=== PATIENT | female | born 1965 | race Caucasian/White ===

== ENCOUNTER 2020-10-02 01:23 | Observation (INO) ==
[2020-10-02] MEDS ORDERED: Ondansetron 4 MG/2 ML VIAL IVP PRN (01:45)
[2020-10-02] MEDS ORDERED: Naloxone 0.4 MG/ML INJ IVP PRN (01:45)
[2020-10-02] MEDS: Acetaminophen 325 MG TABLET PO PRN (04:05)
[2020-10-02] MEDS ORDERED: Dextrose Gel 15 GM/37.5 ML TUBE PO PRN ×2 (04:41)
[2020-10-02] MEDS ORDERED: D5% in Water 1,000 ML IVC PRN (04:41)
[2020-10-02] MEDS ORDERED: *HR* Dextrose 50 % in Water (Vial) 50 ML VIAL IVP PRN (04:41)
[2020-10-02] MEDS ORDERED: hydrOXYzine pamoate 25 MG CAPSULE PO PRN (07:56)
[2020-10-02] MEDS: Insulin LISPRO 300 UNITS/3 ML VIAL SQ SCH ×3 (08:20→17:23)
[2020-10-02 09:25] LABS: INR 1.1; Prothrombin Time 12.7 Seconds (9.4-12.1)
[2020-10-02 09:27] LABS: Basophils # 0.1 K/mcL (0.0-0.2); Basophils % 0.6 %; Eosinophils # 0.2 K/mcL (0.0-0.6); Eosinophils % 2.7 %; Hematocrit 39.1 % (35.3-44.9); Hemoglobin 11.9 g/dL (11.5-15.4); Immature Granulocytes % 0.4 % (0-4); Lymphocytes % 23.5 %; Mean Corpuscular HGB Conc 30.4 g/dL (31.6-35.5); Mean Corpuscular Hemoglobin 23.6 pg (28.0-33.3); Mean Corpuscular Volume 77.6 fL (83.0-100.0); Mean Platelet Volume 9.7 fL (9.4-12.4); Monocytes # 0.7 K/mcL (0.0-1.3); Monocytes % 8.4 %; Neutrophils # 5.5 K/mcL (1.6-8.9); Platelet Count 360 K/mcL (140-400); Red Blood Count 5.04 M/mcL (3.82-4.97); Red Cell Distribution Width 14.7 % (11.5-14.5); Segmented Neutrophils % 64.4 %; White Blood Count 8.5 K/mcL (4.3-11.1)
[2020-10-02 09:57] LABS: Alanine Aminotransferase 8 Units/L (7-52); Albumin 4.2 g/dL (3.5-5.7); Albumin/Globulin Ratio 1.4 (1.1-2.2); Alkaline Phosphatase 87 Units/L (34-104); Aspartate Amino Transferase 11 Units/L (13-39); BUN/Creatinine Ratio 38 (6-26); Blood Urea Nitrogen 21 mg/dL (6-20); Calcium 9.9 mg/dL (8.6-10.3); Carbon Dioxide 22 mEq/L (23-29); Chloride 102 mEq/L (98-107); Globulin 3.1 g/dL (2.4-3.5); Glucose 157 mg/dL (70-105); Magnesium 1.5 mg/dL (1.6-2.6); Osmolality,Calculated 290 (280-300); Potassium 4.2 mEq/L (3.5-5.1); Sodium 137 mEq/L (136-145); Total Protein 7.3 g/dL (6.4-8.9); Troponin I 0.04 ng/mL (< 0.04); eGFR For African Americans > 60 (> 60); eGFR For Non-African Americans > 60 (> 60)
[2020-10-02] MEDS: Aspirin Enteric Coated 81 MG Tablet PO SCH (10:19)
[2020-10-02] MEDS: Sucralfate 1 GM TABLET PO SCH ×3 (10:19→20:51)
[2020-10-02] MEDS: *HR* Heparin 5,000 UNIT/ML VIAL SQ SCH ×2 (10:19→17:23)
[2020-10-02] MEDS: Isosorbide MONOnitrate (24 HR) 60 MG TAB.ER.24H PO SCH (10:23)
[2020-10-02] MEDS ORDERED: Perflutren Lipid Microsphere 1.3 ML in 0.9 % Sodium Chloride 8.7 ML IVP PRN (10:36)
[2020-10-02] MEDS ORDERED: Ibuprofen 400 MG TABLET PO PRN (12:26)
[2020-10-02 18:02] LABS: Total Protein,Pleural Fluid 5.6 g/dL
[2020-10-02 18:06] LABS: RBC,Pleural Fluid 10000 RBC/mcL
[2020-10-02 18:08] LABS: Appearance of Pleural Fl Cloudy (Clear)
[2020-10-02 19:50] LABS: Basophils,Pleural Fluid 0 %; Eosinophils,Pleural Fluid 0 %
[2020-10-02] MEDS: Metoprolol XL (24 HR) Succ 25 MG TAB.ER.24H PO SCH (20:51)
[2020-10-03] MEDS: Insulin LISPRO 300 UNITS/3 ML VIAL SQ SCH ×3 (00:13→11:33)
[2020-10-03] MEDS: *HR* Heparin 5,000 UNIT/ML VIAL SQ SCH (05:30)
[2020-10-03] MEDS: Aspirin Enteric Coated 81 MG Tablet PO SCH (08:20)
[2020-10-03] MEDS: Sucralfate 1 GM TABLET PO SCH ×2 (08:20→11:33)
[2020-10-03] MEDS: Isosorbide MONOnitrate (24 HR) 60 MG TAB.ER.24H PO SCH (08:20)
[2020-10-03] MEDS: Metoprolol XL (24 HR) Succ 25 MG TAB.ER.24H PO SCH (08:21)
[2020-10-03] MEDS: Acetaminophen 325 MG TABLET PO PRN ×2 (08:26→16:20)
[2020-10-03 11:21] VITALS: BP 98/64
[2020-10-03] MEDS ORDERED: Insulin LISPRO 300 UNITS/3 ML VIAL SQ SCH (21:00)
[2020-10-05 19:45] LABS: Fluid Source for Albumin PLEURAL
== END 2020-10-03 16:27 | disposition home or self-care (01) ==
LOC: 2ANU → SUATTDRO 01:23
PROVIDERS: ADMIT Internal Medicine; ATTEND Internal Medicine

== ENCOUNTER 2021-02-02 05:29 | Inpatient (IN) ==
[2021-02-02] MEDS ORDERED: Melatonin 3 MG TABLET PO PRN (07:49)
[2021-02-02] MEDS ORDERED: Naloxone 0.4 MG/ML INJ IVP PRN (07:49)
[2021-02-02] MEDS ORDERED: Ondansetron 4 MG/2 ML VIAL IVP PRN (07:49)
[2021-02-02] MEDS ORDERED: Nitroglycerin 0.4 MG TAB.SUBL SL PRN (07:57)
[2021-02-02] MEDS ORDERED: Perflutren Lipid Microsphere 1.3 ML in 0.9 % Sodium Chloride 8.7 ML IVP PRN (08:37)
[2021-02-02] MEDS ORDERED: *HR* Heparin 5,000 UNIT/ML VIAL IVP ONE (08:40)
[2021-02-02] MEDS ORDERED: *HR* Heparin 5,000 UNIT/ML VIAL IVP PRN (08:40)
[2021-02-02] MEDS: Aspirin Enteric Coated 81 MG Tablet PO SCH (08:45)
[2021-02-02] MEDS: Loratadine 10 MG TABLET PO SCH (08:46)
[2021-02-02] MEDS ORDERED: Dextrose Gel 15 GM/37.5 ML TUBE PO PRN ×2 (08:56)
[2021-02-02] MEDS ORDERED: D5% in Water 1,000 ML IVC PRN (08:56)
[2021-02-02] MEDS ORDERED: *HR* Dextrose 50 % in Water (Vial) 50 ML VIAL IVP PRN (08:56)
[2021-02-02] MEDS: Insulin LISPRO 300 UNITS/3 ML VIAL SUBQ SCH ×4 (09:24→21:22)
[2021-02-02] MEDS: lisinopriL 5 MG TABLET PO SCH (09:27)
[2021-02-02] MEDS: Budesonide/Formoterol 160/4.5 1 PUFF INH IH SCH ×2 (09:45→20:54)
[2021-02-02] MEDS: Tiotropium 10 INH DOSE IH SCH (09:46)
[2021-02-02] MEDS: Heparin 25,000UNIT/250ML 1/2NS 25,000 UNIT/250 ML IV.SOLN IVC SCH (09:50)
[2021-02-02 10:13] LABS: Adenovirus Not Detected (Not Detect); Bordetella Pertussis Not Detected (Not Detect); Chlamydophila pneumoniae Not Detected (Not Detect); Coronavirus 229E Not Detected (Not Detect); Coronavirus HKU1 Not Detected (Not Detect); Coronavirus NL63 Not Detected (Not Detect); Coronavirus OC43 Not Detected (Not Detect); Human Metapneumovirus Not Detected (Not Detect); Human Rhinovirus/Enterovirus Not Detected (Not Detect); Influenza A Subtype 2009 H1 Not Detected (Not Detect); Influenza B Not Detected (Not Detect); Mycoplasma pneumoniae Not Detected (Not Detect); Parainfluenza Virus 1 Not Detected (Not Detect); Parainfluenza Virus 2 Not Detected (Not Detect); Parainfluenza Virus 3 Not Detected (Not Detect); Parainfluenza Virus 4 Not Detected (Not Detect); Respiratory Syncytial Virus Not Detected (Not Detect); SARS-CoV-2 Not Detected (Not Detect)
[2021-02-02] MEDS ORDERED: Isovue-370 500 ML BOTTLE IVP ONE (11:44)
[2021-02-02] MEDS: Acetaminophen 325 MG TABLET PO PRN (17:05)
[2021-02-02] MEDS: *HR* Heparin 5,000 UNIT/ML VIAL IVP PRN (19:27)
[2021-02-03 01:57] LABS: Hematocrit 37.2 % (35.3-44.9); Mean Corpuscular HGB Conc 29.6 g/dL (31.6-35.5); Mean Corpuscular Hemoglobin 21.5 pg (28.0-33.3); Mean Corpuscular Volume 72.7 fL (83.0-100.0); Mean Platelet Volume 9.2 fL (9.4-12.4); Platelet Count 287 K/mcL (140-400); Red Blood Count 5.12 M/mcL (3.82-4.97); Red Cell Distribution Width 18.7 % (11.5-14.5); White Blood Count 6.5 K/mcL (4.3-11.1)
[2021-02-03 02:07] LABS: Prothrombin Time 11.8 Seconds (9.4-12.1)
[2021-02-03 02:14] LABS: BUN/Creatinine Ratio 30 (6-26); Blood Urea Nitrogen 15 mg/dL (6-20); Calcium 9.3 mg/dL (8.6-10.3); Carbon Dioxide 23 mEq/L (23-29); Chloride 105 mEq/L (98-107); Glucose 176 mg/dL (70-105); Magnesium 1.9 mg/dL (1.6-2.6); Osmolality,Calculated 289 (280-300); Sodium 137 mEq/L (136-145); eGFR For African Americans > 60 (> 60); eGFR For Non-African Americans > 60 (> 60)
[2021-02-03 02:21] LABS: Troponin I 0.54 ng/mL (< 0.04)
[2021-02-03] MEDS: Budesonide/Formoterol 160/4.5 1 PUFF INH IH SCH ×2 (08:11→20:56)
[2021-02-03] MEDS: Tiotropium 10 INH DOSE IH SCH (08:12)
[2021-02-03] MEDS: Insulin LISPRO 300 UNITS/3 ML VIAL SUBQ SCH ×4 (08:34→22:14)
[2021-02-03] MEDS: lisinopriL 5 MG TABLET PO SCH (08:40)
[2021-02-03] MEDS: Aspirin Enteric Coated 81 MG Tablet PO SCH (08:41)
[2021-02-03] MEDS: Loratadine 10 MG TABLET PO SCH (08:42)
[2021-02-03] MEDS: Heparin 25,000UNIT/250ML 1/2NS 25,000 UNIT/250 ML IV.SOLN IVC SCH (10:04)
[2021-02-03] MEDS: Acetaminophen 325 MG TABLET PO PRN ×2 (10:04→20:00)
[2021-02-03] MEDS: hydrOXYzine pamoate 25 MG CAPSULE PO PRN (15:51)
[2021-02-04] MEDS: Acetaminophen 325 MG TABLET PO PRN ×3 (04:52→21:23)
[2021-02-04] MEDS: Heparin 25,000UNIT/250ML 1/2NS 25,000 UNIT/250 ML IV.SOLN IVC SCH (07:18)
[2021-02-04] MEDS: Tiotropium 10 INH DOSE IH SCH (07:55)
[2021-02-04] MEDS: Budesonide/Formoterol 160/4.5 1 PUFF INH IH SCH ×2 (07:55→20:36)
[2021-02-04] MEDS: Aspirin Enteric Coated 81 MG Tablet PO SCH (08:47)
[2021-02-04] MEDS: Loratadine 10 MG TABLET PO SCH (08:48)
[2021-02-04] MEDS: Insulin LISPRO 300 UNITS/3 ML VIAL SUBQ SCH ×4 (08:48→21:27)
[2021-02-04] MEDS: lisinopriL 5 MG TABLET PO SCH (09:00)
[2021-02-04] MEDS: hydrOXYzine pamoate 25 MG CAPSULE PO PRN (09:14)
[2021-02-04] MEDS: Sucralfate 1 GM TABLET PO SCH ×2 (17:54→21:23)
[2021-02-05] MEDS: hydrOXYzine pamoate 25 MG CAPSULE PO PRN (00:54)
[2021-02-05 01:45] LABS: Basophils % 0.5 %; Eosinophils # 0.2 K/mcL (0.0-0.6); Eosinophils % 2.9 %; Hematocrit 37.9 % (35.3-44.9); Hemoglobin 11.1 g/dL (11.5-15.4); Immature Granulocytes % 0.5 % (0-4); Lymphocytes # 2.5 K/mcL (0.6-4.6); Lymphocytes % 33.8 %; Mean Corpuscular HGB Conc 29.3 g/dL (31.6-35.5); Mean Corpuscular Hemoglobin 21.7 pg (28.0-33.3); Mean Platelet Volume 9.5 fL (9.4-12.4); Monocytes # 0.6 K/mcL (0.0-1.3); Monocytes % 8.7 %; Neutrophils # 3.9 K/mcL (1.6-8.9); Platelet Count 290 K/mcL (140-400); Red Blood Count 5.12 M/mcL (3.82-4.97); Red Cell Distribution Width 19.1 % (11.5-14.5); Segmented Neutrophils % 53.6 %; White Blood Count 7.4 K/mcL (4.3-11.1)
[2021-02-05 02:03] LABS: BUN/Creatinine Ratio 41 (6-26); Blood Urea Nitrogen 19 mg/dL (6-20); Carbon Dioxide 21 mEq/L (23-29); Chloride 104 mEq/L (98-107); Glucose 188 mg/dL (70-105); Potassium 3.9 mEq/L (3.5-5.1); Sodium 136 mEq/L (136-145); eGFR For African Americans > 60 (> 60); eGFR For Non-African Americans > 60 (> 60)
[2021-02-05 02:04] LABS: Calcium 9.9 mg/dL (8.6-10.3); Osmolality,Calculated 289 (280-300)
[2021-02-05] MEDS: Acetaminophen 325 MG TABLET PO PRN (04:37)
[2021-02-05] MEDS: Heparin 25,000UNIT/250ML 1/2NS 25,000 UNIT/250 ML IV.SOLN IVC SCH (04:41)
[2021-02-05] MEDS: Budesonide/Formoterol 160/4.5 1 PUFF INH IH SCH ×2 (07:30→19:59)
[2021-02-05] MEDS: Tiotropium 10 INH DOSE IH SCH (07:31)
[2021-02-05] MEDS: lisinopriL 5 MG TABLET PO SCH (08:55)
[2021-02-05] MEDS: Sucralfate 1 GM TABLET PO SCH ×4 (08:55→20:29)
[2021-02-05] MEDS: Loratadine 10 MG TABLET PO SCH (08:55)
[2021-02-05] MEDS: Aspirin Enteric Coated 81 MG Tablet PO SCH (08:56)
[2021-02-05] MEDS: Insulin LISPRO 300 UNITS/3 ML VIAL SUBQ SCH ×4 (08:56→20:28)
[2021-02-05] MEDS: *HR* OxyCODONE Immed Rel 5 MG TABLET PO PRN ×2 (08:59→15:24)
[2021-02-05] MEDS ORDERED: 0.9 % Sodium Chloride 2,000 ML ONE (09:22)
[2021-02-05] MEDS ORDERED: *HR* Midazolam HCl 2 MG/2 ML VIAL ONE (09:22)
[2021-02-05] MEDS ORDERED: *HR* Heparin 10,000 UNIT/10 ML VIAL ONE (09:22)
[2021-02-05] MEDS ORDERED: ISOVUE-370 200 ML INFUS..BTL ONE ×2 (09:22→10:11)
[2021-02-05] MEDS ORDERED: Heparin 1,000 UNITS/500 mL 500 ML ONE (09:22)
[2021-02-05] MEDS ORDERED: Nitroglycerin 1,000 MCG/5 ML VIAL IV ONE (09:22)
[2021-02-05] MEDS ORDERED: *HR* FentaNYL (PF) 100 MCG/2 ML VIAL ONE (09:22)
[2021-02-05] MEDS: *HR* Heparin 5,000 UNIT/ML VIAL IVP PRN (16:56)
[2021-02-06 01:08] LABS: Basophils % 0.5 %; Eosinophils # 0.2 K/mcL (0.0-0.6); Eosinophils % 2.8 %; Hematocrit 35.8 % (35.3-44.9); Hemoglobin 10.4 g/dL (11.5-15.4); Immature Granulocytes % 0.5 % (0-4); Lymphocytes # 2.4 K/mcL (0.6-4.6); Lymphocytes % 32.5 %; Mean Corpuscular HGB Conc 29.1 g/dL (31.6-35.5); Mean Corpuscular Volume 72.2 fL (83.0-100.0); Mean Platelet Volume 9.6 fL (9.4-12.4); Monocytes # 0.7 K/mcL (0.0-1.3); Monocytes % 8.7 %; Neutrophils # 4.1 K/mcL (1.6-8.9); Platelet Count 282 K/mcL (140-400); Red Blood Count 4.96 M/mcL (3.82-4.97); Red Cell Distribution Width 18.8 % (11.5-14.5); White Blood Count 7.5 K/mcL (4.3-11.1)
[2021-02-06 01:23] LABS: BUN/Creatinine Ratio 34 (6-26); Blood Urea Nitrogen 19 mg/dL (6-20); Calcium 9.4 mg/dL (8.6-10.3); Carbon Dioxide 22 mEq/L (23-29); Chloride 105 mEq/L (98-107); Glucose 193 mg/dL (70-105); Osmolality,Calculated 292 (280-300); Potassium 3.8 mEq/L (3.5-5.1); Sodium 137 mEq/L (136-145); eGFR For African Americans > 60 (> 60); eGFR For Non-African Americans > 60 (> 60)
[2021-02-06] MEDS: Heparin 25,000UNIT/250ML 1/2NS 25,000 UNIT/250 ML IV.SOLN IVC SCH (02:49)
[2021-02-06] MEDS: Budesonide/Formoterol 160/4.5 1 PUFF INH IH SCH ×2 (07:59→19:34)
[2021-02-06] MEDS: Tiotropium 10 INH DOSE IH SCH (08:00)
[2021-02-06] MEDS: Aspirin Enteric Coated 81 MG Tablet PO SCH (08:21)
[2021-02-06] MEDS: Insulin LISPRO 300 UNITS/3 ML VIAL SUBQ SCH ×4 (08:21→19:31)
[2021-02-06] MEDS: lisinopriL 5 MG TABLET PO SCH (08:22)
[2021-02-06] MEDS: Loratadine 10 MG TABLET PO SCH (08:22)
[2021-02-06] MEDS: Sucralfate 1 GM TABLET PO SCH ×4 (08:22→19:27)
[2021-02-06] MEDS: *HR* OxyCODONE Immed Rel 5 MG TABLET PO PRN (08:30)
[2021-02-06] MEDS: Isosorbide MONOnitrate (24 HR) 30 MG TAB.ER.24H PO SCH (17:12)
[2021-02-06] MEDS: *HR* Heparin 5,000 UNIT/ML VIAL SQ SCH (17:13)
[2021-02-06] MEDS: Acetaminophen 325 MG TABLET PO PRN (17:19)
[2021-02-06] MEDS: hydrOXYzine pamoate 25 MG CAPSULE PO PRN (19:27)
[2021-02-07] MEDS: *HR* Heparin 5,000 UNIT/ML VIAL SQ SCH (04:44)
[2021-02-07] MEDS: *HR* OxyCODONE Immed Rel 5 MG TABLET PO PRN (04:44)
[2021-02-07 05:45] LABS: Basophils % 0.3 %; Eosinophils # 0.2 K/mcL (0.0-0.6); Eosinophils % 2.5 %; Hematocrit 34.9 % (35.3-44.9); Hemoglobin 10.4 g/dL (11.5-15.4); Immature Granulocytes % 0.8 % (0-4); Lymphocytes # 2.1 K/mcL (0.6-4.6); Lymphocytes % 32.4 %; Mean Corpuscular HGB Conc 29.8 g/dL (31.6-35.5); Mean Corpuscular Hemoglobin 21.2 pg (28.0-33.3); Mean Corpuscular Volume 71.1 fL (83.0-100.0); Mean Platelet Volume 9.6 fL (9.4-12.4); Monocytes # 0.7 K/mcL (0.0-1.3); Monocytes % 10.2 %; Neutrophils # 3.5 K/mcL (1.6-8.9); Platelet Count 294 K/mcL (140-400); Red Blood Count 4.91 M/mcL (3.82-4.97); Red Cell Distribution Width 18.6 % (11.5-14.5); Segmented Neutrophils % 53.8 %; White Blood Count 6.5 K/mcL (4.3-11.1)
[2021-02-07 06:03] LABS: BUN/Creatinine Ratio 33 (6-26); Blood Urea Nitrogen 16 mg/dL (6-20); Calcium 9.9 mg/dL (8.6-10.3); Carbon Dioxide 24 mEq/L (23-29); Chloride 104 mEq/L (98-107); Glucose 197 mg/dL (70-105); Osmolality,Calculated 291 (280-300); Potassium 3.7 mEq/L (3.5-5.1); Sodium 137 mEq/L (136-145); eGFR For African Americans > 60 (> 60); eGFR For Non-African Americans > 60 (> 60)
[2021-02-07 06:05] LABS: Chol/HDL Ratio 4.2 (0-4.9)
[2021-02-07] MEDS: Tiotropium 10 INH DOSE IH SCH (07:50)
[2021-02-07] MEDS: Budesonide/Formoterol 160/4.5 1 PUFF INH IH SCH (07:50)
[2021-02-07] MEDS: Insulin LISPRO 300 UNITS/3 ML VIAL SUBQ SCH ×2 (08:09→11:07)
[2021-02-07] MEDS: Loratadine 10 MG TABLET PO SCH (08:09)
[2021-02-07] MEDS: Sucralfate 1 GM TABLET PO SCH ×2 (08:10→12:08)
[2021-02-07] MEDS: lisinopriL 5 MG TABLET PO SCH (08:10)
[2021-02-07] MEDS: Isosorbide MONOnitrate (24 HR) 30 MG TAB.ER.24H PO SCH (08:10)
[2021-02-07] MEDS: Acetaminophen 325 MG TABLET PO PRN ×2 (08:10→14:11)
[2021-02-07] MEDS ORDERED: Aspirin Enteric Coated 81 MG Tablet PO SCH (09:00)
[2021-02-07 11:01] VITALS: BP 120/60
== END 2021-02-07 15:15 | disposition home or self-care (01) | DRG 190 ==
LOC: 2ANU → SUATTDRO 07:32
PROVIDERS: ADMIT Internal Medicine; ATTEND General Practice

== ENCOUNTER 2021-04-02 09:17 | Observation (INO) ==
[2021-04-02] MEDS ORDERED: 0.9 % Sodium Chloride 1,000 ML ONE ×2 (09:36→14:16)
[2021-04-02] MEDS ORDERED: ISOVUE-370 200 ML INFUS..BTL ONE ×2 (09:36→14:16)
[2021-04-02] MEDS ORDERED: Heparin 1,000 UNITS/500 mL 500 ML ONE ×2 (09:36→14:16)
[2021-04-02] MEDS ORDERED: *HR* Heparin 10,000 UNIT/10 ML VIAL ONE ×2 (09:36→14:16)
[2021-04-02] MEDS ORDERED: Nitroglycerin 1,000 MCG/5 ML VIAL IV ONE ×2 (09:36→14:16)
[2021-04-02] MEDS ORDERED: Tirofiban 12.5 MG/250ML 12.5 MG/250 ML BAG ONE (09:40)
[2021-04-02] MEDS ORDERED: *HR* FentaNYL (PF) 100 MCG/2 ML VIAL ONE ×2 (10:09→14:49)
[2021-04-02] MEDS ORDERED: *HR* Midazolam HCl 2 MG/2 ML VIAL ONE ×2 (10:09→14:48)
[2021-04-03] MEDS ORDERED: Morphine Sulfate 2 MG/ML SYRINGE IVP PRN (00:13)
[2021-04-03] MEDS: Nitroglycerin 1 INCH/GM PACKET TP SCH ×2 (00:40→06:16)
[2021-04-03] MEDS ORDERED: Albuterol 2.5 MG/3 ML NEBULIZER IH PRN (00:46)
[2021-04-03] MEDS ORDERED: D5% in Water 1,000 ML IVC PRN (00:59)
[2021-04-03] MEDS ORDERED: *HR* Dextrose 50 % in Water (Vial) 50 ML VIAL IVP PRN (00:59)
[2021-04-03] MEDS ORDERED: Dextrose Gel 15 GM/37.5 ML TUBE PO PRN ×2 (00:59)
[2021-04-03 02:11] LABS: Basophils % 0.5 %; Eosinophils # 0.1 K/mcL (0.0-0.6); Eosinophils % 1.6 %; Hematocrit 35.1 % (35.3-44.9); Hemoglobin 10.5 g/dL (11.5-15.4); Immature Granulocytes % 0.5 % (0-4); Lymphocytes # 1.7 K/mcL (0.6-4.6); Lymphocytes % 26.1 %; Mean Corpuscular HGB Conc 29.9 g/dL (31.6-35.5); Mean Corpuscular Volume 70.1 fL (83.0-100.0); Mean Platelet Volume 9.3 fL (9.4-12.4); Monocytes # 0.5 K/mcL (0.0-1.3); Monocytes % 8.4 %; Platelet Count 317 K/mcL (140-400); Red Blood Count 5.01 M/mcL (3.82-4.97); Segmented Neutrophils % 62.9 %; White Blood Count 6.4 K/mcL (4.3-11.1)
[2021-04-03 02:28] LABS: Alanine Aminotransferase 12 Units/L (7-52); Albumin 3.9 g/dL (3.5-5.7); Albumin/Globulin Ratio 1.4 (1.1-2.2); Alkaline Phosphatase 76 Units/L (34-104); Aspartate Amino Transferase 11 Units/L (13-39); BUN/Creatinine Ratio 19 (6-26); Bilirubin,Total 0.8 mg/dL (0.3-1.0); Blood Urea Nitrogen 11 mg/dL (6-20); Calcium 9.6 mg/dL (8.6-10.3); Carbon Dioxide 31 mEq/L (23-29); Chloride 101 mEq/L (98-107); Globulin 2.7 g/dL (2.4-3.5); Glucose 179 mg/dL (70-105); INR 1.1; Magnesium 1.4 mg/dL (1.6-2.6); Osmolality,Calculated 296 (280-300); Potassium 2.8 mEq/L (3.5-5.1); Prothrombin Time 12.8 Seconds (9.4-12.1); Sodium 141 mEq/L (136-145); Total Protein 6.6 g/dL (6.4-8.9); eGFR For African Americans > 60 (> 60); eGFR For Non-African Americans > 60 (> 60)
[2021-04-03] MEDS: Insulin LISPRO 300 UNITS/3 ML VIAL SUBQ SCH ×2 (06:06→12:58)
[2021-04-03] MEDS ORDERED: Nitroglycerin 1 INCH/GM PACKET TP ONE (06:37)
[2021-04-03] MEDS ORDERED: lisinopriL 5 MG TABLET PO SCH (09:00)
[2021-04-03] MEDS ORDERED: Isosorbide MONOnitrate (24 HR) 30 MG TAB.ER.24H PO SCH (09:00)
[2021-04-03] MEDS ORDERED: Aspirin 81 MG TAB.CHEW PO SCH (09:00)
[2021-04-03 09:32] LABS: Hematocrit 35.4 % (35.3-44.9); Hemoglobin 10.7 g/dL (11.5-15.4); Mean Corpuscular HGB Conc 30.2 g/dL (31.6-35.5); Mean Corpuscular Hemoglobin 21.1 pg (28.0-33.3); Mean Corpuscular Volume 69.7 fL (83.0-100.0); Mean Platelet Volume 9.6 fL (9.4-12.4); Platelet Count 287 K/mcL (140-400); Red Blood Count 5.08 M/mcL (3.82-4.97); Red Cell Distribution Width 17.8 % (11.5-14.5); White Blood Count 5.9 K/mcL (4.3-11.1)
[2021-04-03 09:52] LABS: BUN/Creatinine Ratio 20 (6-26); Blood Urea Nitrogen 8 mg/dL (6-20); Calcium 9.5 mg/dL (8.6-10.3); Carbon Dioxide 29 mEq/L (23-29); Chloride 102 mEq/L (98-107); Glucose 151 mg/dL (70-105); Osmolality,Calculated 291 (280-300); Potassium 3.2 mEq/L (3.5-5.1); Sodium 140 mEq/L (136-145); eGFR For African Americans > 60 (> 60); eGFR For Non-African Americans > 60 (> 60)
[2021-04-03] MEDS ORDERED: Budesonide/Formoterol 160/4.5 1 PUFF INH IH SCH (10:00)
[2021-04-03] MEDS ORDERED: Tiotropium 10 INH DOSE IH SCH (10:00)
[2021-04-03 11:24] VITALS: BP 116/69
[2021-04-03 12:53] LABS: Potassium 3.6 mEq/L (3.5-5.1); Troponin I 0.06 ng/mL (< 0.04)
[2021-04-04] MEDS ORDERED: Isosorbide MONOnitrate (24 HR) 60 MG TAB.ER.24H PO SCH (09:00)
== END 2021-04-03 19:32 | disposition home or self-care (01) ==
LOC: SUATTDRO → INVDIALAB 09:17 → 3BNU 09:17 → UNDODISOB 04-03 14:53
PROVIDERS: ADMIT Registered Nurse; ATTEND Registered Nurse